=== PATIENT | male | born 1960 | race Caucasian/White ===

== ENCOUNTER 2019-09-12 09:30 | Emergency (ER) | payer OTHER ==
[~2019-09-12] VITALS: Ht 177.8 cm; Wt 75.8 kg
[~2019-09-12 09:30] MED LIST: ALLEGRA-D 24 H1 EACH PO; ALLOPURINOL 10100 M1 PO; CLARITIN10 MG PO; GOUT MED PO; INDOCIN SR75 MG PO; JARDIANCE10 MG PO; METFORMIN HCL500 M3 PO; NORCO 5-325 TA1 EACH PO; VITAMIN C100 MG PO; VITAMIN D400 UNIT PO
[2019-09-12] MEDS ORDERED: POTASSIUM20 PO (10:01)
[2019-09-12] MEDS ORDERED: ADDERALL 10 MG10 MG PO (10:02)
[2019-09-12] MEDS ORDERED: ASA81BEC PO (10:02)
[2019-09-12 10:39] LABS: ABSOLUTE NEUTROPHILS 4.4 thou/uL (1.4-8.2); BASOPHILS 0.7 % (0.0-2.0); EOSINOPHILS 3.6 % (0.0-3.0); HEMOGLOBIN 16.7 gm/dL (14.0-18.0); LYMPHOCYTES 21.3 % (24.0-44.0); MCH 28.7 pg (26.0-34.0); MCHC 34.1 g/dL (28.0-37.0); MCV 84.2 fL (80.0-100.0); MONOCYTES 8.2 % (1.0-8.0); PLATELET COUNT 267 thou/uL (150-400); POLYS 66.2 % (36.0-66.0); RBC 5.82 mil/uL (4.50-6.00); RDW 12.8 % (10.5-14.5); WBC 6.7 thou/uL (4.0-11.0)
[2019-09-12 10:43] LABS: ANION GAP 10 mmol/L (7-16); BUN 16 mg/dL (7-18); CALCIUM 9.2 mg/dL (8.5-10.1); CHLORIDE 95 mmol/L (98-107); CO2 25 mmol/L (21-32); CREATININE 1.1 mg/dL (0.7-1.3); GLUCOSE 398 mg/dL (74-106); SODIUM 130 mmol/L (136-145)
[2019-09-12 10:53] LABS: ALBUMIN 3.6 g/dL (3.4-5.0); SGOT 28 U/L (15-37); SGPT 56 U/L (30-65); TOTAL BILIRUBIN 0.7 mg/dL (<0.1-1.0); TOTAL PROTEIN 7.8 g/dL (6.4-8.2); TROPONIN-I <0.06 ng/mL (<0.06)
[2019-09-12 11:44] LABS: URINE BILIRUBIN NEGATIVE (Negative); URINE BLOOD NEGATIVE (Negative); URINE CLARITY CLEAR; URINE COLOR YELLOW; URINE GLUCOSE-RANDOM* 3+ (Negative); URINE KETONES NEGATIVE (Negative); URINE LEUKOCYTES-REFLEX NEGATIVE (Negative); URINE NITRITE-REFLEX NEGATIVE (Negative); URINE PROTEIN (DIPSTICK) NEGATIVE (Negative); URINE UROBILINOGEN 0.2 E.U./dl (0.2-1.0)
[2019-09-12] MEDS ORDERED: LIDODERM1 EACH TOP (14:07)
[2019-09-12] MEDS ORDERED: MOBIC15 MG PO (14:07)
[2019-09-12 14:18] VITALS: BP 154/100
--- NOTE | 2019-09-12 15:21 | EKG ---
[address] [address] ELECTROCARDIOGRAM REPORT Name: KAILYN JACQUES Room #: [facility] [id number] Admission: 09/12/19 Attend Phys: Discharge: 09/12/19 Date of : 62 Report #: [id number] THIS REPORT FOR: //name// [facility] ED Test Date: 2019-09-12 Test Time: 09:46:45 Pat Name: KAILYN JACQUES Department: Room: Gender: Clinical Dermatologist: [facility] : 1960 Requested By: Keagan Zapata Order Number: [id number] MD: Kehinde Munoz Measurements Intervals [place] Rate: 110 P: 26 ID: [id number] QRS: -56 QRSD: 87 T: 25 QT: 327 QTc: 443 Interpretive Statements Sinus tachycardia Left anterior fascicular block Abnormal R-wave progression, late transition Left ventricular hypertrophy No previous ECG available for comparison Electronically Signed On 09-12-2019 15:20:49 [employer] by Kehinde Munoz [email or web address] <ELECTRONICALLY SIGNED> By: Kehinde Munoz MD 09/12/19 1520 5 5 Kehinde Munoz MD /LIANG
== END 2019-09-12 14:19 | disposition home or self-care (01) ==
LOC: ER 09:30
PROVIDERS: Emergency Medicine
DX: M54.16 Radiculopathy, lumbar region (principal); R07.9 Chest pain, unspecified; R73.9 Hyperglycemia, unspecified; R42 Dizziness and giddiness; E78.00 Pure hypercholesterolemia, unspecified; Z87.442 Personal history of urinary calculi; Z90.49 Acquired absence of other specified parts of digestive tract

== ENCOUNTER → 2019-09-13 | Outpatient (CLI) | payer OTHER ==
[~2019-09-13] MED LIST changes: +ADDERALL 10 MG10 MG PO; +ASA81BEC PO; +LIDODERM1 EACH TOP; +MOBIC15 MG PO; +POTASSIUM20 PO
== END ==
LOC: MRI 07:44
DX: M25.561 Pain in right knee (principal); M25.551 Pain in right hip; M51.37 Other intervertebral disc degeneration, lumbosacral region